=== PATIENT | female | born 1975 | race Caucasian/White ===

== ENCOUNTER 2020-02-08 14:13 | Inpatient (IN) | payer SELFPAY ==
[2020-02-08] MEDS ORDERED: ACETAMINOPHEN 325 MG TABLET PO PRN (14:52)
[2020-02-08] MEDS ORDERED: ONDANSETRON HCL INJ/PF 4 MG/2 ML SDV IV PRN (14:52)
[2020-02-08] MEDS ORDERED: MORPHINE SULFATE 10 MG/ML INJ IV PRN (14:59)
--- NOTE | 2020-02-08 15:51 | PDOC H&P ---
History of Present Illness Admission Date/PCP: 02/08/20 14:13 Patient complains of: Abdominal pain, nausea, vomiting, jaundice. History of Present Illness: CAMILO NAVAS is a 44 year old female with history of hypertension, chronic smoker, history of AVR alcohol use went to emergency room incarcerated with complaints of noticing a loose discoloration of the eyes for the last 1 month. She also reported abdominal pains for the last 2 weeks initially she thought it was due to menopause. Decided to go to emergency room heart rate today for further management. Extensive work-up was done in the emergency room found to have total bilirubin of 11.3, direct bilirubin of 9.3, indirect bilirubin of 2.0, elevated liver function tests and ammonia level of 51.5. Case was discussed with Dr. Jonathan Hui and he agreed to do ERCP if needed. So the ER physician Dr. Alvarado called me for a transfer to this hospital in [place] for further management. Past Surgical History Past Surgical History: Reports: Tonsillectomy, Other - Lumbar laminectomy Social History Information Source: Patient Smoking Status: Current Every Day Smoker Frequency of Alcohol Use: Heavy Hx Prescription Drug Abuse: No - Advance Directive Resuscitation Status: Full Code Family History Parental Family History Reviewed: Yes - Patient is adopted. Children Family History Reviewed: Yes Sibling(s) Family History Reviewed.: Yes Medication/Allergy Allergies/Adverse Reactions: No Known Allergies Allergy (Unverified 02/08/20 15:10) Review of Systems Constitutional: PRESENT: fatigue, weakness. ABSENT: fever(s), night sweats Eyes: PRESENT: other - Catrina discoloration of the sclera Ears: ABSENT: hearing changes Nose, Mouth, and Throat: ABSENT: sore throat Cardiovascular: ABSENT: orthropnea, palpitations Respiratory: ABSENT: dyspnea, hemoptysis Gastrointestinal: PRESENT: abdominal pain, nausea, vomiting. ABSENT: diarrhea Musculoskeletal: ABSENT: joint swelling Integumentary: ABSENT: rash, wounds Neurological: ABSENT: abnormal gait, abnormal speech, confusion, dizziness, focal weakness, syncope Psychiatric: ABSENT: anxiety, depression, homidical ideation, suicidal ideation Physical Exam Vital Signs: Temp Pulse Resp BP Pulse Ox 98.6 F 66 18 102/64 100 02/08/20 14:52 02/08/20 14:52 02/08/20 14:52 02/08/20 14:52 02/08/20 14:52 Intake & Output 02/07/20 02/08/20 02/09/20 06:59 06:59 06:59 Weight 66.9 kg General appearance: PRESENT: no acute distress, cooperative, well-developed Head exam: PRESENT: atraumatic Eye exam: PRESENT: conjunctiva pale, scleral icterus Ear exam: PRESENT: normal external ear exam Mouth exam: PRESENT: moist, tongue midline Neck exam: ABSENT: carotid bruit, JVD, lymphadenopathy, thyromegaly Respiratory exam: PRESENT: crackles Cardiovascular exam: PRESENT: tachycardia GI/Abdominal exam: PRESENT: tenderness, other - Unchanged palpation complaining of right upper quadrant pain. Rectal exam: PRESENT: deferred Extremities exam: PRESENT: full ROM. ABSENT: calf tenderness, clubbing, pedal edema Neurological exam: PRESENT: alert, awake, oriented to person, oriented to place, oriented to time, oriented to situation, CN II-XII grossly intact. ABSENT: motor sensory deficit Psychiatric exam: PRESENT: appropriate affect, normal mood. ABSENT: homicidal ideation, suicidal ideation Assessment and Plan - Diagnosis (1) Abdominal pain Is this a current diagnosis for this admission?: Yes Plan: 02/08/2020-patient is going to be admitted to [facility] with complaints of abdominal pain as an inpatient. Consultation with Dr. Hui was requested for possible ERCP. MRI of the abdomen is abnormal with moderate bile duct dilatation with the extrahepatic duct measuring up to 1 cm without filling defect to confirm choledocholithiasis. There is a tapping of the duct in the [place]-ampullary region may be reflecting benign or malignant stricture. Consultation with Dr. archuleta which was requested again. Patient started on IV morphine 1 mg every 4 hours as needed for pain GI prophylaxis initiated. (2) Obstructive jaundice Is this a current diagnosis for this admission?: Yes Plan: 02/08/2020-patient came in with elevated total bilirubin and direct bilirubin. Indirect bilirubin is also high. LFTs are elevated. Patient may need a ERCP. Consultation Dr. Hui was requested. (3) Tobacco abuse Is this a current diagnosis for this admission?: No Plan: 02/08/2020-patient has history of current day smoking smoking counseling was provided placed on nicotine patches. (4) Alcohol abuse Is this a current diagnosis for this admission?: Yes Plan: 02/08/2020-patient has history of the alcohol abuse counseling was provided. To place her on IV Ativan 1 mg every 2 hours as needed to prevent withdrawal symptoms. - Time Anticipated Discharge Disposition: Home, Self Care Anticipated Discharge Timeframe: within 72 hours
[2020-02-08 16:05] LABS: ABSOLUTE BASOPHILS # (AUTO) 0.1 10^3/uL (0.0-0.2); ABSOLUTE EOSINOPHILS # (AUTO) 0.3 10^3/uL (0.0-0.6); ABSOLUTE LYMPHOCYTES (AUTO) 1.1 10^3/uL (0.5-4.7); ABSOLUTE MONOCYTES (AUTO) 0.3 10^3/uL (0.1-1.4); ABSOLUTE NEUT (AUTO) 5.7 10^3/uL (1.7-8.2); BASOPHILS % (AUTO) 1.2 % (0-2); EOSINOPHILS % (AUTO) 3.5 % (0-6); HEMATOCRIT 32.6 % (36.0-47.0); HEMOGLOBIN 11.4 g/dL (12.0-15.5); LYMPHOCYTES % (AUTO) 15.1 % (13-45); MEAN CORPUSCULAR HEMOGLOBIN 41.2 pg (27.0-33.4); MEAN CORPUSCULAR HGB CONC 35.1 g/dL (32.0-36.0); MONOCYTES % (AUTO) 3.7 % (3-13); PLATELET COUNT 243 10^3/uL (150-450); RED BLOOD COUNT 2.78 10^6/uL (3.72-5.28); SEGMENTED NEUTROPHILS % (AUTO) 76.5 % (42-78); TOTAL CELLS COUNTED % (AUTO) 100 %; WHITE BLOOD COUNT 7.5 10^3/uL (4.0-10.5)
[2020-02-08 16:18] LABS: ALBUMIN 3.1 g/dL (3.5-5.0); ALKALINE PHOSPHATASE 194 U/L (38-126); ANION GAP 7 (5-19); ASPARTATE AMINO TRANSFERASE 162 U/L (14-36); BILIRUBIN,DIRECT 11.8 mg/dL (0.0-0.4); BILIRUBIN,TOTAL 13.7 mg/dL (0.2-1.3); BLOOD UREA NITROGEN 5 mg/dL (7-20); CALCIUM 7.8 mg/dL (8.4-10.2); CARBON DIOXIDE 30 mmol/L (22-30); CHLORIDE 97 mmol/L (98-107); GLUCOSE 104 mg/dL (75-110); TOTAL PROTEIN 7.3 g/dL (6.3-8.2)
[2020-02-08 16:23] LABS: MEAN CORPUSCULAR VOLUME 117 fl (80-97)
[2020-02-08 16:25] LABS: ANISOCYTOSIS 1+; PLATELET COMMENT ADEQUATE
[2020-02-08 16:27] LABS: OVALOCYTES SLIGHT; POIKILOCYTOSIS SLIGHT; TARGET CELLS SLIGHT
[2020-02-08 16:38] LABS: POTASSIUM 2.3 mmol/L (3.6-5.0)
[2020-02-08 16:39] LABS: PROTHROMBIN TIME 14.4 SEC (11.4-15.4)
[2020-02-08] MEDS: DOCUSATE SODIUM 100 MG CAPSULE PO SCH (17:10)
[2020-02-08] MEDS: NORMAL SALINE 1000 ML 1,000 ML IV PRN (17:18)
[2020-02-08] MEDS ORDERED: DEXTROSE 50%-WATER 25 GM/50 ML DISP.SYRIN IV PRN ×2 (17:47)
[2020-02-08] MEDS ORDERED: GLUCAGON,HUMAN RECOMB 1 MG INJ SUBCUT PRN (17:47)
[2020-02-08] MEDS ORDERED: DEXTROSE 40% GEL 15 GM TUBE PO PRN ×2 (17:47)
[2020-02-08] MEDS: CEFAZOLIN 1 GM/D5W RTU 1 GM/50 ML RTUPB IV SCH ×2 (17:50→23:48)
[2020-02-08] MEDS: POTASSI CL 20 MEQ/50 ML RIDER 20 MEQ/50 ML RTUPB IV SCH ×2 (18:09→21:39)
[2020-02-08 20:59] LABS: URINE AMPHETAMINES SCREEN NEGATIVE; URINE BARBITURATES SCREEN NEGATIVE; URINE COCAINE SCREEN NEGATIVE; URINE PHENCYCLIDINE SCREEN NEGATIVE
[2020-02-08 21:04] LABS: URINE BENZODIAZEPINES SCREEN UNCONFIRMED POSITIVE; URINE MARIJUANA (THC) SCREEN UNCONFIRMED POSITIVE
[2020-02-08 21:05] LABS: URINE METHADONE SCREEN UNCONFIRMED POSITIVE
[2020-02-08] MEDS ORDERED: FAMOTIDINE 20 MG TABLET PO SCH (22:00)
[2020-02-09 03:47] LABS: INTERNATIONAL RATION (INR) 1.12; PROTHROMBIN TIME 14.6 SEC (11.4-15.4)
[2020-02-09 03:59] LABS: ALBUMIN 2.7 g/dL (3.5-5.0); ALKALINE PHOSPHATASE 162 U/L (38-126); ANION GAP 8 (5-19); ASPARTATE AMINO TRANSFERASE 150 U/L (14-36); BILIRUBIN,DIRECT 9.8 mg/dL (0.0-0.4); BILIRUBIN,TOTAL 11.3 mg/dL (0.2-1.3); BLOOD UREA NITROGEN 5 mg/dL (7-20); CALCIUM 7.6 mg/dL (8.4-10.2); CARBON DIOXIDE 24 mmol/L (22-30); CHLORIDE 102 mmol/L (98-107); CHOLESTEROL 173.48 mg/dL (0-200); GLUCOSE 94 mg/dL (75-110); TOTAL PROTEIN 6.4 g/dL (6.3-8.2); TRIGLYCERIDES 500 mg/dL (<150)
[2020-02-09 04:09] LABS: DIRECT LDL 98 mg/dL (<100)
[2020-02-09 04:12] LABS: ABSOLUTE BASOPHILS # (AUTO) 0.1 10^3/uL (0.0-0.2); ABSOLUTE EOSINOPHILS # (AUTO) 0.3 10^3/uL (0.0-0.6); ABSOLUTE LYMPHOCYTES (AUTO) 1.5 10^3/uL (0.5-4.7); ABSOLUTE MONOCYTES (AUTO) 0.4 10^3/uL (0.1-1.4); ABSOLUTE NEUT (AUTO) 5.5 10^3/uL (1.7-8.2); BASOPHILS % (AUTO) 1.7 % (0-2); EOSINOPHILS % (AUTO) 4.1 % (0-6); LYMPHOCYTES % (AUTO) 18.8 % (13-45); MEAN CORPUSCULAR HEMOGLOBIN 41.5 pg (27.0-33.4); MEAN CORPUSCULAR HGB CONC 35.4 g/dL (32.0-36.0); MEAN CORPUSCULAR VOLUME 117 fl (80-97); MONOCYTES % (AUTO) 5.4 % (3-13); PLATELET COUNT 224 10^3/uL (150-450); RED BLOOD COUNT 2.13 10^6/uL (3.72-5.28); RED CELL DISTRIBUTION WIDTH 17.2 % (11.5-14.0); TOTAL CELLS COUNTED % (AUTO) 100 %; WHITE BLOOD COUNT 7.8 10^3/uL (4.0-10.5)
[2020-02-09 04:15] LABS: POTASSIUM 2.6 mmol/L (3.6-5.0)
[2020-02-09 04:41] LABS: ANISOCYTOSIS 1+
[2020-02-09 04:42] LABS: HEMOGLOBIN 8.9 g/dL (12.0-15.5); PLATELET COMMENT ADEQUATE; TARGET CELLS SLIGHT; TEAR DROP CELLS SLIGHT
[2020-02-09] MEDS: CEFAZOLIN 1 GM/D5W RTU 1 GM/50 ML RTUPB IV SCH ×3 (05:00→17:11)
[2020-02-09] MEDS: POTASSI CL 20 MEQ/50 ML RIDER 20 MEQ/50 ML RTUPB IV SCH ×4 (05:14→13:56)
[2020-02-09] MEDS ORDERED: POTASSI CL 20 MEQ/50 ML RIDER 20 MEQ/50 ML RTUPB IV ONE ×2 (08:30→13:00)
[2020-02-09] MEDS ORDERED: NORMAL SALINE 250 ML IV PRN ×2 (09:19)
[2020-02-09 10:16] LABS: PATH REVIEW PATHOLOGIST REVIEWED
[2020-02-09] MEDS: DOCUSATE SODIUM 100 MG CAPSULE PO SCH ×2 (10:29→20:20)
[2020-02-09] MEDS: NICOTINE 21 MG/24 HR PATCH.TD24 TD SCH (10:29)
[2020-02-09] MEDS: PANTOPRAZOLE SODIUM 40 MG VIAL IV SCH ×2 (10:30→21:53)
[2020-02-09] MEDS ORDERED: ONDANSETRON HCL INJ/PF 4 MG/2 ML SDV ONE (10:58)
[2020-02-09] MEDS ORDERED: DEXAMETHASONE SOD PHOSPHATE INJ 4 MG/1 ML VIAL ONE (10:58)
[2020-02-09] MEDS ORDERED: LIDOCAINE 2% INJ-PF (20 MG/ML) 2 ML AMPUL ONE (10:58)
[2020-02-09] MEDS ORDERED: SUCCINYLCHOLINE CHLORIDE INJ 200 MG/10 ML VIAL ONE (10:58)
--- NOTE | 2020-02-09 11:37 | PDOC PROGRESS REPORT ---
Subjective Progress Note for:: 02/09/20 Subjective:: 44 year old female with history of hypertension, chronic smoker, history of AVR alcohol use went to emergency room incarcerated with complaints of noticing a loose discoloration of the eyes for the last 1 month. She also reported abdominal pains for the last 2 weeks initially she thought it was due to menopause. Decided to go to emergency room heart rate today for further management. Extensive work-up was done in the emergency room found to have total bilirubin of 11.3, direct bilirubin of 9.3, indirect bilirubin of 2.0, elevated liver function tests and ammonia level of 51.5. Case was discussed with Dr. Jonathan Hui and he agreed to do ERCP if needed. So the ER physician Dr. Alvarado called me for a transfer to this hospital in [place] for further management. 02/09/2020-no acute events in the last 24 hours. Patient is n.p.o. for ERCP this evening. Serum potassium is 2.6 receiving potassium IV supplementations plan is to repeat potassium level at 1:00. Bilirubin is improving and LFTs are improving. Reason For Visit: ABDOMINAL PAIN Physical Exam Vital Signs: Temp Pulse Resp BP Pulse Ox 98.9 F 86 16 110/58 L 100 02/09/20 08:00 02/09/20 08:00 02/09/20 08:00 02/09/20 08:00 02/09/20 08:00 Intake & Output 02/08/20 02/09/20 02/10/20 06:59 06:59 06:59 Intake Total 510 106 Balance 510 106 Weight 66.9 kg General appearance: PRESENT: no acute distress, well-developed Eye exam: PRESENT: PERRLA, scleral icterus Mouth exam: PRESENT: moist, tongue midline Neck exam: ABSENT: carotid bruit, JVD, lymphadenopathy, thyromegaly Respiratory exam: PRESENT: decreased breath sounds Cardiovascular exam: PRESENT: RRR. ABSENT: diastolic murmur, rubs, systolic murmur GI/Abdominal exam: PRESENT: normal bowel sounds, soft. ABSENT: distended, gu arding, mass, organolmegaly, rebound, tenderness Rectal exam: PRESENT: deferred Extremities exam: PRESENT: full ROM. ABSENT: calf tenderness, clubbing, pedal edema Neurological exam: PRESENT: alert, awake, oriented to person, oriented to place, oriented to time, oriented to situation, CN II-XII grossly intact. ABSENT: mot or sensory deficit Psychiatric exam: PRESENT: appropriate affect, normal mood. ABSENT: homicidal ideation, suicidal ideation Results Laboratory Results: 02/09/20 03:53 02/09/20 03:07 02/08/20 02/08/20 02/09/20 15:40 15:40 03:07 WBC 7.5 Cancelled RBC 2.78 L Cancelled Hgb 11.4 L Cancelled Hct 32.6 L Cancelled MCV 117 H Cancelled MCH 41.2 H Cancelled MCHC 35.1 Cancelled RDW 17.0 H Cancelled Plt Count 243 Cancelled Seg Neutrophils % 76.5 Cancelled Sodium 134.4 L Potassium 2.3 L* Chloride 97 L Carbon Dioxide 30 Anion Gap 7 BUN 5 L Creatinine 0.41 L Est GFR ( Amer) > 60 Glucose 104 Calcium 7.8 L Magnesium 2.2 Total Bilirubin 13.7 H AST 162 H Alkaline Phosphatase 194 H Total Protein 7.3 Albumin 3.1 L Triglycerides Cholesterol LDL Cholesterol Direct HDL Cholesterol Lipase TSH 02/09/20 02/09/20 02/09/20 03:07 03:07 03:53 WBC 7.8 RBC 2.13 L Hgb 8.9 L D Hct 25.0 L MCV 117 H MCH 41.5 H MCHC 35.4 RDW 17.2 H Plt Count 224 Seg Neutrophils % 70.0 Sodium 133.5 L Potassium 2.6 L* Chloride 102 Carbon Dioxide 24 Anion Gap 8 BUN 5 L Creatinine 0.43 L Est GFR ( Amer) > 60 Glucose 94 Calcium 7.6 L Magnesium 2.2 Total Bilirubin 11.3 H AST 150 H Alkaline Phosphatase 162 H Total Protein 6.4 Albumin 2.7 L Triglycerides 500 H Cholesterol 173.48 LDL Cholesterol Direct 98 HDL Cholesterol 10 L Lipase 196.7 TSH 3.39 02/08/20 02/08/20 02/09/20 15:40 21:00 03:07 Troponin I < 0.012 < 0.012 < 0.012 Assessment and Plan - Diagnosis (1) Abdominal pain Is this a current diagnosis for this admission?: Yes Plan: 02/08/2020-patient is going to be admitted to [facility] with complaints of abdominal pain as an inpatient. Consultation with Dr. Hui was requested for possible ERCP. MRI of the abdomen is abnormal with moderate bile duct dilatation with the extrahepatic duct measuring up to 1 cm without filling defect to confirm choledocholithiasis. There is a tapping of the duct in the [place]-ampullary region may be reflecting benign or malignant stricture. Consultation with Dr. archuleta which was requested again. Patient started on IV morphine 1 mg every 4 hours as needed for pain GI prophylaxis initiated. 02/09/2020-abdominal pain is improving. And is presently on IV morphine PRN. (2) Obstructive jaundice Is this a current diagnosis for this admission?: Yes Plan: 02/08/2020-patient came in with elevated total bilirubin and direct bilirubin. Indirect bilirubin is also high. LFTs are elevated. Patient may need a ERCP. Consultation Dr. Hui was requested. 02/09/2020-patient is going to have a ERCP today. LFTs and bilirubin slightly improved compared to yesterday. Patient is n.p.o. at this time. (3) Tobacco abuse Is this a current diagnosis for this admission?: No (4) Alcohol abuse Is this a current diagnosis for this admission?: Yes (5) Polysubstance (excluding opioids) dependence Is this a current diagnosis for this admission?: Yes Plan: 02/09/2020-urine drug screen is positive for opiates, marijuana, benzodiazepines, methadone. Counseling was provided to avoid recreational drug use. (6) Hypokalemia Is this a current diagnosis for this admission?: Yes Plan: 02/09/2020-serum potassium today is 2.6. Patient is receiving IV potassium supplementations. To repeat potassium at 1 PM today. - Time Anticipated Discharge Disposition: Home, Self Care Anticipated Discharge Timeframe: within 72 hours
[2020-02-09] MEDS ORDERED: POTASSIUM CHLORIDE 10 MEQ TABLET.ER PO ONE (12:00)
[2020-02-09] MEDS: NORMAL SALINE 1000 ML 1,000 ML IV PRN (12:24)
[2020-02-09 13:26] LABS: APPEARANCE,URINE CLEAR; BILIRUBIN,URINE MODERATE (NEGATIVE); COLOR,URINE AMBER; GLUCOSE, URINE NEGATIVE (NEGATIVE); KETONES,URINE NEGATIVE (NEGATIVE); LEUKOCYTE ESTERASE,URINE SMALL (NEGATIVE); NITRITE,URINE NEGATIVE (NEGATIVE); PROTEIN,URINE 30 mg/dL (NEGATIVE); URINE SPECIFIC GRAVITY 1.015
--- NOTE | 2020-02-09 16:49 | EKG REPORT ---
SEVERITY:- ABNORMAL ECG - SINUS RHYTHM BORDERLINE INFERIOR Q WAVES PROLONGED QT INTERVAL : Confirmed by: Luis Angel Yoo MD 09-Feb-2020 16:49:02
[2020-02-09] MEDS ORDERED: FENTANYL CITRATE INJ/PF 100 MCG/2 ML AMPUL ONE (17:53)
[2020-02-09] MEDS ORDERED: PROPOFOL INJ 200 MG/20 ML VIAL IV ONE (17:53)
[2020-02-09] MEDS ORDERED: MIDAZOLAM 2 MG/2 ML INJ ONE (17:53)
--- NOTE | 2020-02-09 18:58 | PDOC CONSULTATION ---
Consultation Consult Date: 02/09/20 Provider Consulted: ZANDRA LI History of Present Illness Admission Date/PCP: 02/08/20 14:13 History of Present Illness: CAMILO NAVAS is a 44 year old female Patient who was transferred from [facility] emergency room with jaundice, dilated biliary tree and gallstones. Consultation was requested for ERCP. Patient has been having recurrent abdominal pain at least for the last week and has noticed jaundice in the last few days. Her bilirubin at the emergency room was 11 and upon arrival at [facility] it was 13. She has elevated transaminases and alkaline phosphatase but normal lipase. She had an ultrasound that showed gallstones and an MRCP that showed dilated common bile duct with no definite choledocholithiasis. Patient used to abuse alcohol though she claims she has not drank for a while. Her potassium was 2.3 on admission and had to be corrected over the following 24 hours hence a delay in her ERCP. Past Medical History Psychiatric Medical History: Denies: Depression Past Surgical History Past Surgical History: Reports: Tonsillectomy, Other - Lumbar laminectomy Social History Smoking Status: Unknown if Ever Smoked Frequency of Alcohol Use: Heavy Hx Recreational Drug Use: No Drugs: None Hx Prescription Drug Abuse: No - Advance Directive Resuscitation Status: Full Code Family History Parental Family History Reviewed: No Children Family History Reviewed: NA Sibling(s) Family History Reviewed.: NA Medication/Allergy Allergies/Adverse Reactions: latex Allergy (Intermediate, Verified 02/09/20 12:18) Swelling of hands and/or feet Review of Systems All systems: reviewed and no additional remarkable complaints except as stated Physical Exam Vital Signs: Temp Pulse Resp BP Pulse Ox 97.8 F 74 16 106/70 93 02/09/20 17:40 02/09/20 17:40 02/09/20 17:40 02/09/20 17:40 02/09/20 17:40 Intake & Output 02/08/20 02/09/20 02/10/20 06:59 06:59 06:59 Intake Total 510 1211 Balance 510 1211 Weight 66.9 kg Exam: General: Patient is alert and looks well. HEENT: There is no pallor but she is jaundiced. PERRLA. Oropharynx normal Respiratory: No chest deformity. No respiratory distress. Chest wall palpitation was unremarkable. Breath sounds were normal Cardiovascular: Heart sounds 1 and 2 normal with no murmurs. Abdominal: Not distended. Soft and nontender. Liver and spleen not palpable. No ascites demonstrated. Bowel sounds active. Rectal examination was deferred. Extremities: No edema Neurological: Alert and oriented x4. Grossly nonfocal. Normal speech Skin: No significant rash Psychological: Normal affect Results Laboratory Results: 02/09/20 03:53 02/09/20 13:08 02/09/20 02/09/20 02/09/20 03:07 03:07 03:07 WBC Cancelled RBC Cancelled Hgb Cancelled Hct Cancelled MCV Cancelled MCH Cancelled MCHC Cancelled RDW Cancelled Plt Count Cancelled Seg Neutrophils % Cancelled Sodium 133.5 L Potassium 2.6 L* Chloride 102 Carbon Dioxide 24 Anion Gap 8 BUN 5 L Creatinine 0.43 L Est GFR ( Amer) > 60 Glucose 94 Calcium 7.6 L Magnesium 2.2 Total Bilirubin 11.3 H AST 150 H Alkaline Phosphatase 162 H Total Protein 6.4 Albumin 2.7 L Triglycerides 500 H Cholesterol 173.48 LDL Cholesterol Direct 98 HDL Cholesterol 10 L Lipase 196.7 TSH 3.39 Urine Color Urine Appearance Urine pH Ur Specific [place] Urine Protein Urine Glucose (UA) Urine Ketones Urine Blood Urine Nitrite Ur Leukocyte Esterase Urine WBC (Auto) Urine RBC (Auto) 02/09/20 02/09/20 02/09/20 03:53 12:50 13:08 WBC 7.8 RBC 2.13 L Hgb 8.9 L D Hct 25.0 L MCV 117 H MCH 41.5 H MCHC 35.4 RDW 17.2 H Plt Count 224 Seg Neutrophils % 70.0 Sodium Potassium 3.4 L Chloride Carbon Dioxide Anion Gap BUN Creatinine Est GFR ( Amer) Glucose Calcium Magnesium Total Bilirubin AST Alkaline Phosphatase Total Protein Albumin Triglycerides Cholesterol LDL Cholesterol Direct HDL Cholesterol Lipase TSH Urine Color GERTRUDE Urine Appearance CLEAR Urine pH 7.0 Ur Specific [place] 1.015 Urine Protein 30 H Urine Glucose (UA) NEGATIVE Urine Ketones NEGATIVE Urine Blood MODERATE H Urine Nitrite NEGATIVE Ur Leukocyte Esterase SMALL H Urine WBC (Auto) 12 Urine RBC (Auto) 7 02/08/20 02/08/20 02/09/20 15:40 21:00 03:07 Troponin I < 0.012 < 0.012 < 0.012 Assessment & Plan - Diagnosis (1) Obstructive jaundice Is this a current diagnosis for this admission?: Yes Plan: She has obstructive jaundice, gallstones and dilated ducts suggestive of choledocholithiasis. Her LFT picture could also be seen with alcohol liver disease. The need for an ERCP including the risk and benefit was explained to the patient and she is in agreement. (3) Alcohol abuse Is this a current diagnosis for this admission?: Yes (4) Polysubstance (excluding opioids) dependence Is this a current diagnosis for this admission?: Yes
--- NOTE | 2020-02-09 18:59 | Operative Report ---
Operative Report DATE OF SURGERY: 02/09/20 Operative Report: Pre-op diagnosis: Jaundice, gallstones and dilated bile duct Post-op diagnosis: Common bile duct sludge Surgery: ERCP with sphincterotomy and balloon sludge extraction Medications: As per anesthesia Tissue removed: None Procedure: After informed consent obtained from patient, patient was placed under general anesthesia. The ERCP endoscope was then inserted into the esophagus blindly and advanced into the stomach. The duodenum was entered and the ampulla was identified. Using the triple-lumen sphincterotomy catheter the common bile duct was freely cannulated. A cholangiogram was obtained . A good sized sphincterotomy was then performed using the endocut mode. The catheter was removed over the guidewire before a 9-12 mm balloon catheter was inserted. The balloon was inflated to 12 mm in the proximal common bile duct and pulled down the duct. The duct was swept two more times. A balloon occlusion cholangiogram was normal. Patient tolerated procedure well. Findings Common bile duct: The common bile duct did not appear dilated. Small amount of sludge was extracted. Intrahepatic ducts: Normal Pancreatic duct: Not cannulated Plan: Follow-up LFTs as outpatient. She can be discharged tomorrow if stable OPERATION: .
[2020-02-09] MEDS ORDERED: FENTANYL CITRATE INJ/PF 100 MCG/2 ML AMPUL IV PRN (19:11)
[2020-02-09] MEDS ORDERED: PROMETHAZINE HCL INJ 25 MG/1 ML VIAL IV PRN (19:11)
[2020-02-09] MEDS ORDERED: DIPHENHYDRAMINE HCL 50 MG/ML VIAL IV PRN (19:11)
[2020-02-10 07:00] LABS: ABSOLUTE BASOPHILS # (AUTO) 0.1 10^3/uL (0.0-0.2); ABSOLUTE LYMPHOCYTES (AUTO) 1.1 10^3/uL (0.5-4.7); ABSOLUTE MONOCYTES (AUTO) 0.3 10^3/uL (0.1-1.4); BASOPHILS % (AUTO) 0.8 % (0-2); EOSINOPHILS % (AUTO) 0.2 % (0-6); HEMATOCRIT 26.8 % (36.0-47.0); HEMOGLOBIN 9.5 g/dL (12.0-15.5); LYMPHOCYTES % (AUTO) 13.5 % (13-45); MEAN CORPUSCULAR HEMOGLOBIN 41.3 pg (27.0-33.4); MEAN CORPUSCULAR HGB CONC 35.5 g/dL (32.0-36.0); MEAN CORPUSCULAR VOLUME 117 fl (80-97); MONOCYTES % (AUTO) 3.2 % (3-13); PLATELET COUNT 250 10^3/uL (150-450); RED CELL DISTRIBUTION WIDTH 17.6 % (11.5-14.0); SEGMENTED NEUTROPHILS % (AUTO) 82.3 % (42-78); TOTAL CELLS COUNTED % (AUTO) 100 %; WHITE BLOOD COUNT 8.5 10^3/uL (4.0-10.5)
[2020-02-10 07:28] LABS: ALBUMIN 2.5 g/dL (3.5-5.0); ALKALINE PHOSPHATASE 145 U/L (38-126); ANION GAP 7 (5-19); ASPARTATE AMINO TRANSFERASE 134 U/L (14-36); BILIRUBIN,DIRECT 8.6 mg/dL (0.0-0.4); BILIRUBIN,TOTAL 9.9 mg/dL (0.2-1.3); BLOOD UREA NITROGEN 2 mg/dL (7-20); CALCIUM 7.8 mg/dL (8.4-10.2); CARBON DIOXIDE 20 mmol/L (22-30); CHLORIDE 110 mmol/L (98-107); GLUCOSE 120 mg/dL (75-110); TOTAL PROTEIN 6.2 g/dL (6.3-8.2)
[2020-02-10 07:38] LABS: HEPATITS B SURFACE ANTIGEN Negative (Negative)
[2020-02-10 08:00] LABS: ANISOCYTOSIS 1+; PLATELET CLUMPS PRESENT; PLATELET COMMENT ADEQUATE; POLYCHROMASIA SLIGHT
--- NOTE | 2020-02-10 09:31 | RADIOLOGY REPORT (SQ) ---
EXAM DESCRIPTION: NO CHG FLUORO; ENDO CATH/BILIARY DUCT IMAGES COMPLETED DATE/TIME: 02/09/2020 8:14 pm REASON FOR STUDY: ERCP IN OR COMPARISON: None. FLUOROSCOPY TIME: 1.9 minutes 6 images saved to PACS. TECHNIQUE: Intra-operative images acquired during surgical procedure to evaluate progress. NUMBER OF IMAGES: 6 LIMITATIONS: None. FINDINGS: Images obtained from ERCP. IMPRESSION: IMAGE(S) OBTAINED DURING PROCEDURE. COMMENT: Quality ID [id number]: Final reports for procedures using fluoroscopy that document radiation exp osure indices, or exposure time and number of fluorographic images (if radiation exposure indices are not available) Please consult full operative report of the attending physician for description of the procedure. TECHNICAL DOCUMENTATION: JOB ID: [id number] 2010 [employer]- All Rights Reserved Reading location - IP/workstation name: [email or web address]
--- NOTE | 2020-02-10 09:31 | RADIOLOGY REPORT (SQ) ---
EXAM DESCRIPTION: NO CHG FLUORO; ENDO CATH/BILIARY DUCT IMAGES COMPLETED DATE/TIME: 02/09/2020 8:14 pm REASON FOR STUDY: ERCP IN OR COMPARISON: None. FLUOROSCOPY TIME: 1.9 minutes 6 images saved to PACS. TECHNIQUE: Intra-operative images acquired during surgical procedure to evaluate progress. NUMBER OF IMAGES: 6 LIMITATIONS: None. FINDINGS: Images obtained from ERCP. IMPRESSION: IMAGE(S) OBTAINED DURING PROCEDURE. COMMENT: Quality ID [id number]: Final reports for procedures using fluoroscopy that document radiation exp osure indices, or exposure time and number of fluorographic images (if radiation exposure indices are not available) Please consult full operative report of the attending physician for description of the procedure. TECHNICAL DOCUMENTATION: JOB ID: [id number] 2010 [employer]- All Rights Reserved Reading location - IP/workstation name: [email or web address]
[2020-02-10] MEDS: PANTOPRAZOLE SODIUM 40 MG VIAL IV SCH (10:08)
[2020-02-10] MEDS: DOCUSATE SODIUM 100 MG CAPSULE PO SCH (10:08)
[2020-02-10] MEDS: NICOTINE 21 MG/24 HR PATCH.TD24 TD SCH (10:09)
[2020-02-10 11:08] LABS: HEPATITIS C VIRUS ANTIBODY <0.1 s/co ratio (0.0-0.9)
[2020-02-10 12:07] VITALS: BP 106/70
--- NOTE | 2020-02-10 17:06 | PDOC DISCHARGE SUMMARY ---
Impression - Admit/DC Date/PCP Admission Date/Primary Care Provider: 02/08/20 14:13 Discharge Date: 02/10/20 - Discharge Diagnosis (1) Abdominal pain Is this a current diagnosis for this admission?: Yes (2) Common bile duct dilatation Is this a current diagnosis for this admission?: Yes (3) Obstructive jaundice Is this a current diagnosis for this admission?: Yes (4) Tobacco abuse Is this a current diagnosis for this admission?: Yes - Assessment Summary: Ms. Jaimes is a 44 year old female who was transferred from [facility] with jaundice, dilated biliary tree and gallstones. GI consultation was requested for ERCP. Patient has been having recurrent abdominal pain at least for the last week and has noticed jaundice in the last few days. Her bilirubin upon arrival at [facility] was 13. She has elevated transaminases and alkaline ph osphatase but normal lipase. She had an ultrasound that showed gallstones and an MRCP that showed dilated common bile duct with no definite choledocholithiasis. Small amount of sludge was extracted during ECRP on 02/08, and subsequently patient began to feel subjectively improved. Her bilirubin and LFTs are trending down. She was advised to follow a low fat diet, abstain from alcohol, and follow up with PCP/GI in 1-2 weeks. - Additional Information Resuscitation Status: Full Code Discharge Diet: As Tolerated, Other (Comments) Discharge Activity: Activity As Tolerated Referrals: [facility] [Outside] (please make follow up 7-10 days from discharge ) Prescriptions: Nicotine [Nicoderm 21 mg/24 Hr Transderm Patch] 1 each TD DAILY #30 patch.[id number] Home Medications: Cranberry Conc/C/Bacill Coag [AZO Cranberry Tablet] 1 tab PO DAILY 02/10/20 Diazepam [Valium 5 mg Tablet] 5 mg PO PRN PRN 02/10/20 Eszopiclone [Lunesta] 3 mg PO HSP PRN 02/10/20 Hydrochlorothiazide [Hydrodiuril 25 mg Tablet] 25 mg PO DAILY 02/10/20 Methadone HCl [Dolophine 10 mg Tablet] 10 mg PO QID 02/10/20 Nicotine [Nicoderm 21 mg/24 Hr Transderm Patch] 1 each TD DAILY #30 patch.td24 02/10/20 Oxycodone HCl [Roxicodone] 15 mg PO BIDP PRN 02/10/20 Vitamin B Complex [Vitamin B Complex Tablet] 1 tab PO DAILY 02/10/20 History of Present Illiness History of Present Illness: CAMILO JAIMES is a 44 year old female Physical Exam Vital Signs: Temp Pulse Resp BP Pulse Ox 98.2 F 94 16 106/70 100 02/10/20 12:01 02/10/20 12:01 02/10/20 12:01 02/10/20 12:01 02/10/20 12:01 Intake & Output 02/09/20 02/10/20 02/11/20 06:59 06:59 06:59 Intake Total 510 2721 730 Output Total 5 Balance 510 2716 730 Weight 66.9 kg 66.9 kg Results Laboratory Results: WBC 8.5 10^3/uL (4.0-10.5) 02/10/20 06:35 RBC 2.30 10^6/uL (3.72-5.28) L 02/10/20 06:35 Hgb 9.5 g/dL (12.0-15.5) L 02/10/20 06:35 Hct 26.8 % (36.0-47.0) L 02/10/20 06:35 MCV 117 fl (80-97) H 02/10/20 06:35 MCH 41.3 pg (27.0-33.4) H 02/10/20 06:35 MCHC 35.5 g/dL (32.0-36.0) 02/10/20 06:35 RDW 17.6 % (11.5-14.0) H 02/10/20 06:35 Plt Count 250 10^3/uL (150-450) 02/10/20 06:35 Lymph % (Auto) 13.5 % (13-45) 02/10/20 06:35 [place] % (Auto) 3.2 % (3-13) 02/10/20 06:35 Eos % (Auto) 0.2 % (0-6) 02/10/20 06:35 Baso % (Auto) 0.8 % (0-2) 02/10/20 06:35 Absolute Neuts (auto) 7.0 10^3/uL (1.7-8.2) 02/10/20 06:35 Absolute Lymphs (auto) 1.1 10^3/uL (0.5-4.7) 02/10/20 06:35 Absolute Monos (auto) 0.3 10^3/uL (0.1-1.4) 02/10/20 06:35 Absolute Eos (auto) 0.0 10^3/uL (0.0-0.6) 02/10/20 06:35 Absolute Basos (auto) 0.1 10^3/uL (0.0-0.2) 02/10/20 06:35 Seg Neutrophils % 82.3 % (42-78) H 02/10/20 06:35 Platelet Estimate Cancelled 02/09/20 03:07 Clumped Platelets PRESENT 02/10/20 06:35 Platelet Comment ADEQUATE 02/10/20 06:35 Polychromasia SLIGHT 02/10/20 06:35 Poikilocytosis SLIGHT 02/08/20 15:40 Anisocytosis 1+ 02/10/20 06:35 Macrocytosis 3+ 02/10/20 06:35 Target Cells SLIGHT 02/09/20 03:53 Tear Drop Cells SLIGHT 02/09/20 03:53 Ovalocytes SLIGHT 02/08/20 15:40 PT 14.6 SEC (11.4-15.4) 02/09/20 03:07 INR 1.12 02/09/20 03:07 Sodium 136.9 mmol/L (137-145) L 02/10/20 06:35 Potassium 4.0 mmol/L (3.6-5.0) 02/10/20 06:35 Chloride 110 mmol/L (98-107) H 02/10/20 06:35 Carbon Dioxide 20 mmol/L (22-30) L 02/10/20 06:35 Anion Gap 7 (5-19) 02/10/20 06:35 BUN 2 mg/dL (7-20) L 02/10/20 06:35 Creatinine 0.38 mg/dL (0.52-1.25) L 02/10/20 06:35 Est GFR ( Amer) > 60 (>60) 02/10/20 06:35 Est GFR (MDRD) Non-Af > 60 (>60) 02/10/20 06:35 Glucose 120 mg/dL (75-110) H 02/10/20 06:35 Hemoglobin A1c % % (4.7-6.0) 02/10/20 06:35 Calcium 7.8 mg/dL (8.4-10.2) L 02/10/20 06:35 Magnesium 2.2 mg/dL (1.6-2.3) 02/10/20 06:35 Total Bilirubin 9.9 mg/dL (0.2-1.3) H 02/10/20 06:35 Direct Bilirubin 8.6 mg/dL (0.0-0.4) H 02/10/20 06:35 Neonat Total Bilirubin Not Reportable 02/10/20 06:35 Neonat Direct Bilirubin Not Reportable 02/10/20 06:35 Neonat Indirect Bili Not Reportable 02/10/20 06:35 AST 134 U/L (14-36) H 02/10/20 06:35 ALT 45 U/L (<35) H 02/10/20 06:35 Alkaline Phosphatase 145 U/L (38-126) H 02/10/20 06:35 Troponin I < 0.012 ng/mL 02/09/20 03:07 Total Protein 6.2 g/dL (6.3-8.2) L 02/10/20 06:35 Albumin 2.5 g/dL (3.5-5.0) L 02/10/20 06:35 Triglycerides 500 mg/dL (<150) H 02/09/20 03:07 Cholesterol 173.48 mg/dL (0-200) 02/09/20 03:07 LDL Cholesterol Direct 98 mg/dL (<100) 02/09/20 03:07 VLDL Cholesterol, Calc UNABLE TO CALCULATE 02/09/20 03:07 HDL Cholesterol 10 mg/dL (>40) L 02/09/20 03:07 Lipase 196.7 U/L (23-300) 02/09/20 03:07 TSH 3.39 uIU/mL (0.47-4.68) 02/09/20 03:07 Urine Color GERTRUDE 02/09/20 12:50 Urine Appearance CLEAR 02/09/20 12:50 Urine pH 7.0 (5.0-9.0) 02/09/20 12:50 Ur Specific [place] 1.015 02/09/20 12:50 Urine Protein 30 mg/dL (NEGATIVE) H 02/09/20 12:50 Urine Glucose (UA) NEGATIVE mg/dL (NEGATIVE) 02/09/20 12:50 Urine Ketones NEGATIVE mg/dL (NEGATIVE) 02/09/20 12:50 Urine Blood MODERATE (NEGATIVE) H 02/09/20 12:50 Urine Nitrite NEGATIVE (NEGATIVE) 02/09/20 12:50 Urine Bilirubin MODERATE (NEGATIVE) H 02/09/20 12:50 Urine Urobilinogen 4.0 mg/dL (<2.0) H 02/09/20 12:50 Ur Leukocyte Esterase SMALL (NEGATIVE) H 02/09/20 12:50 Urine WBC (Auto) 12 /HPF 02/09/20 12:50 Urine RBC (Auto) 7 /HPF 02/09/20 12:50 Squamous Epi Cells Auto 6 /HPF 02/09/20 12:50 Urine Mucus (Auto) RARE /LPF 02/09/20 12:50 Urine Ascorbic Acid NEGATIVE (NEGATIVE) 02/09/20 12:50 Urine Opiates Screen UNCONFIRMED POSITIVE 02/08/20 20:12 Urine Methadone Screen UNCONFIRMED POSITIVE 02/08/20 20:12 Ur Barbiturates Screen NEGATIVE 02/08/20 20:12 Ur Phencyclidine Scrn NEGATIVE 02/08/20 20:12 Ur Amphetamines Screen NEGATIVE 02/08/20 20:12 U Benzodiazepines Scrn UNCONFIRMED POSITIVE 02/08/20 20:12 Urine Cocaine Screen NEGATIVE 02/08/20 20:12 U Marijuana (THC) Screen UNCONFIRMED POSITIVE 02/08/20 20:12 Hepatitis A IgM Ab Negative (Negative) 02/08/20 15:40 Hep Bs Antigen Negative (Negative) 02/08/20 15:40 Hep B Core IgM Ab Negative (Negative) 02/08/20 15:40 Hepatitis C Antibody <0.1 s/co ratio (0.0-0.9) 02/08/20 15:40 SARS-CoV-2 (PCR) NEGATIVE (NEGATIVE) 02/09/20 15:20 Slides for Path Review Cancelled 02/09/20 03:07 02/08/20 02/08/20 02/09/20 15:40 21:00 03:07 Troponin I < 0.012 < 0.012 < 0.012 Impressions: Catheter Placement 02/09/20 00:00 IMPRESSION: IMAGE(S) OBTAINED DURING PROCEDURE. Fluoroscopy 02/09/20 00:00 IMPRESSION: IMAGE(S) OBTAINED DURING PROCEDURE. Stroke Is this a Stroke Patient?: No Acute Heart Failure Is this a Heart Failure Patient?: No
== END 2020-02-10 12:38 | disposition home or self-care (01) | DRG 446 ==
LOC: 4W 14:13 → 4S 02-09 22:03
PROVIDERS: ADMIT Internal Medicine; ATTEND Hospitalist
PROC: BF101ZZ Fluoroscopy of Bile Ducts using Low Osmolar Contrast (ICD-10-PCS; 2020-02-09)
PROC: 0FC98ZZ Extirpation of Matter from Common Bile Duct, Via Natural or Artificial Opening Endoscopic (ICD-10-PCS; principal; 2020-02-09 17:30)
DX: K82.8 Other specified diseases of gallbladder (principal); K80.80 Other cholelithiasis without obstruction; I10 Essential (primary) hypertension; F17.200 Nicotine dependence, unspecified, uncomplicated; F10.10 Alcohol abuse, uncomplicated; F12.10 Cannabis abuse, uncomplicated; F15.10 Other stimulant abuse, uncomplicated; F13.10 Sedative, hypnotic or anxiolytic abuse, uncomplicated; Z71.51 Drug abuse counseling and surveillance of drug abuser; E87.6 Hypokalemia
CPT/HCPCS: 36415; 43264; 732; 74328; 80053; 80061; 80074; 80307; 81001; 83036; 83690; 83735; 84132; 84443; 84484; 85025; 85610; 87635; 93005; 93010; C9113; C9803; J0330; J0690; J1100; J2250; J2270; J2405; J2704; J3010; J3480; J3490; J7030